=== PATIENT | male | born 1985 | race Caucasian/White ===

== ENCOUNTER 2021-05-03 22:23 | Emergency (ER) | payer OTHER ==
[~2021-05-03] VITALS: Ht 190.5 cm; Wt 79.4 kg
[2021-05-03] MEDS ORDERED: IBUPROFEN 400 MG TAB PO ONE (23:00)
== END 2021-05-03 23:42 | disposition left against medical advice (07) ==
LOC: ER 22:44
DX: S80.211A Abrasion, right knee, initial encounter (principal); M25.511 Pain in right shoulder; V28.4XXA Motorcycle driver injured in noncollision transport accident in traffic accident, initial encounter; Y92.488 Other paved roadways as the place of occurrence of the external cause